=== PATIENT | male | born 1960 | race Caucasian/White ===

== ENCOUNTER 2019-11-09 10:55 | Emergency (ER) | payer SELFPAY ==
[~2019-11-09] VITALS: Ht 188 cm; Wt 95.3 kg
[2019-11-09 11:07] VITALS: BP 117/72
--- NOTE | 2019-11-09 11:38 | NUR ---
Patient given discharge instructions and they have confirmed that they understand the instructions. Patient ambulatory with steady gait.
== END 2019-11-09 11:39 | disposition home or self-care (01) ==
LOC: ED 11:25
DX: K02.9 Dental caries, unspecified (principal)
CPT/HCPCS: 99283